=== PATIENT | male | born 1965 | race Caucasian/White ===

== ENCOUNTER 2022-12-24 13:43 | Emergency (ER) | payer SELFPAY ==
[~2022-12-24] VITALS: Ht 162.6 cm; Wt 65.0 kg
[2022-12-24 13:47] VITALS: BP 186/108; PULSE 97; RESP 18; TEMP 98.3; O2SAT 100
[2022-12-24] MEDS ORDERED: LEVETIRACETAM 500MG TABLET PO ONE (14:00)
== END 2022-12-24 14:38 | disposition left against medical advice (07) ==
LOC: ER 14:08
DX: R56.9 Unspecified convulsions (principal)
CPT/HCPCS: 93005; 99283

== ENCOUNTER → 2023-12-16 | Emergency (ER) | payer MEDICAID, OTHER ==
[~2023-12-16] VITALS: Ht 167.6 cm; Wt 75.0 kg
[2023-12-16 09:57] VITALS: O2SAT 99
[2023-12-16] MEDS: LORAZEPAM 2MG/ML INJ IV ONE (10:49)
[2023-12-16 10:51] LABS: BASOPHILS % 0.3 % (0.0-2.0); EOSINOPHILS % 0.3 % (0.0-5.0); HEMATOCRIT. 42.6 % (42.0-52.0); HEMOGLOBIN. 14.8 g/dL (14.0-18.0); LYMPHOCYTES % 25.4 % (20.0-50.0); MEAN CORPUSCULAR HEMOGLOBIN 33.5 pg (28.0-32.0); MEAN CORPUSCULAR HGB CONC 34.7 g/dL (31.0-37.0); MEAN CORPUSCULAR VOLUME 96.8 fL (80.0-94.0); MEAN PLATELET VOLUME 9.7 fl (7.4-10.4); MONOCYTES % 5.2 % (2.0-8.0); NEUTROPHILS % 68.8 % (40.0-76.0); PLATELET 227 x1000/uL (130-400); RED CELL DISTRIBUTION WIDTH 12.2 % (11.6-14.6); WHITE BLOOD COUNT 9.4 x1000/uL (4.5-11.0)
[2023-12-16] MEDS: LEVETIRACETAM 500MG PREMIX 100 ML IV ONE ×2 (10:54→11:24)
[2023-12-16 11:09] LABS: CHLORIDE 99 mEq/L (98-107); POTASSIUM 4.3 mEq/L (3.5-5.1); SODIUM 131 mEq/L (136-145)
[2023-12-16 11:10] LABS: CARBON DIOXIDE 21 mEq/L (21-32)
[2023-12-16 11:15] LABS: CREATININE 1.1 mg/dL (0.6-1.3); UREA NITROGEN BLOOD 14 mg/dL (9-23)
[2023-12-16 12:02] LABS: ETHANOL BLOOD < 10 mg/dL (<10)
[2023-12-16 12:03] LABS: GLUCOSE 485 mg/dL (70-105)
[2023-12-16] MEDS: ONDANSETRON HCL 4MG/2ML INJ IV ONE (13:54)
[2023-12-16] MEDS: INSULIN REGULAR (HUMULIN R) 1000UNITS/10ML VIAL IV ONE (13:55)
[2023-12-16] MEDS: SODIUM CHLORIDE 0.9% 1,000 ML IV ONE (13:55)
[2023-12-16] MEDS: HYDRALAZINE 20MG/ML VIAL IV ONE (13:56)
[2023-12-16 15:44] VITALS: TEMP 98.8
[2023-12-16 17:35] VITALS: BP 117/86; PULSE 76; RESP 16
== END ==
LOC: ER 09:55 → 5WST 14:31 → UNDOADMIN 14:31 → EDBEDREQTM 14:33 → EDBEDREQ 14:33 → UNDODISIN 17:50
DX: R56.9 Unspecified convulsions (principal); I10 Essential (primary) hypertension
CPT/HCPCS: 80048; 80320; 82962; 85025; 36415; 70450; 96361; 96365; 96366; 96375; 99291; 82542; J1953; J1815; J2060; J2405; J7030; 99285; G0480